=== PATIENT | male | born 1955 | race Native Hawaiian/Other Pacific Islander ===

== ENCOUNTER 2016-10-24 18:43 | Outpatient (CLI) | payer OTHER ==
[2016-10-24] MEDS ORDERED: QC IBUPROFEN200 M1 OR (19:49)
[2016-10-24] MEDS ORDERED: LISI10TA11 PO (19:50)
[2016-10-24] MEDS ORDERED: FLUOXETINE20 MG PO (19:51)
== END 2016-10-24 18:58 | disposition home or self-care (01) ==
LOC: AMB 18:43
DX: R41.82 Altered mental status, unspecified (principal); R06.09 Other forms of dyspnea
CPT/HCPCS: A0425; A0427

== ENCOUNTER 2016-10-24 19:02 | Emergency (ER) | payer OTHER ==
[~2016-10-24] VITALS: Ht 172.7 cm; Wt 63.5 kg
[2016-10-24 19:30] LABS: PLATELET COUNT 69 K/uL (142-355)
[2016-10-24] MEDS ORDERED: QC IBUPROFEN200 M1 OR (19:49)
[2016-10-24 19:50] LABS: POTASSIUM 3.3 mmol/L (3.6-5.2)
[2016-10-24] MEDS ORDERED: LISI10TA11 PO (19:50)
[2016-10-24] MEDS ORDERED: FLUOXETINE20 MG PO (19:51)
[2016-10-24 19:59] LABS: SODIUM 102 mmol/L (136-145)
[2016-10-24 20:20] LABS: PARTIAL THROMBOPLASTIN TIME 28.4 SECONDS (24.5-33.6)
[2016-10-24 22:15] VITALS: BP 119/68; TEMP 98.7
== END 2016-10-24 22:30 | disposition short-term general hospital (02) ==
LOC: ED 19:02
DX: E87.1 Hypo-osmolality and hyponatremia (principal); F10.10 Alcohol abuse, uncomplicated; R68.89 Other general symptoms and signs
CPT/HCPCS: 36415; 80053; 80307; 80320; 81000; 82550; 84484; 85027; 85610; 85730; 93005; 96374; 96375; 99284; G0479; J1940; J2060; J3411

== ENCOUNTER 2016-10-24 22:22 | Outpatient (CLI) | payer OTHER ==
[~2016-10-24 22:22] MED LIST: FLUOXETINE20 MG PO; LISI10TA11 PO; QC IBUPROFEN200 M1 OR
== END 2016-10-24 22:56 | disposition short-term general hospital (02) ==
LOC: AMB 22:22
DX: E87.1 Hypo-osmolality and hyponatremia (principal); F10.10 Alcohol abuse, uncomplicated; R68.89 Other general symptoms and signs
CPT/HCPCS: A0425; A0429

== ENCOUNTER 2017-02-14 18:29 | Emergency (ER) | payer OTHER ==
[~2017-02-14] VITALS: Ht 172.7 cm; Wt 61.2 kg
[2017-02-14 18:37] VITALS: BP 151/77; TEMP 97.8
[2017-02-14] MEDS ORDERED: LABETALOL200 MG OR (18:41)
[2017-02-14 18:49] LABS: PLATELET COUNT 264 K/uL (142-355)
[2017-02-14 19:17] LABS: SODIUM 110 mmol/L (136-145)
== END 2017-02-14 20:20 | disposition home or self-care (01) ==
LOC: ED 18:29
DX: E87.1 Hypo-osmolality and hyponatremia (principal); F10.10 Alcohol abuse, uncomplicated
CPT/HCPCS: 36415; 80053; 80320; 82550; 84484; 85027; 93005; 96360; 99284

== ENCOUNTER 2017-02-16 08:59 | Outpatient (CLI) | payer OTHER ==
[~2017-02-16 08:59] MED LIST changes: +LABETALOL200 MG OR
== END 2017-02-16 09:06 | disposition short-term general hospital (02) ==
LOC: AMB 08:59
DX: I46.9 Cardiac arrest, cause unspecified (principal)
CPT/HCPCS: A0425; A0427

== ENCOUNTER 2017-02-16 09:11 | Emergency (ER) | payer OTHER ==
[~2017-02-16] VITALS: Ht 175.3 cm; Wt 68.0 kg
[2017-02-16 09:31] LABS: PLATELET COUNT 216 K/uL (142-355)
[2017-02-16 09:45] LABS: PARTIAL THROMBOPLASTIN TIME 59.2 SECONDS (24.5-33.6)
[2017-02-16 09:54] LABS: SODIUM 110 mmol/L (136-145)
== END 2017-02-16 11:40 | disposition expired ==
LOC: ED 09:11
PROVIDERS: Family Medicine
PROC: 0T9B70Z Drainage of Bladder with Drainage Device, Via Natural or Artificial Opening (ICD-10-PCS; principal; 2017-02-16)
PROC: 5A12012 Performance of Cardiac Output, Single, Manual (ICD-10-PCS; 2017-02-16)
DX: I46.9 Cardiac arrest, cause unspecified (principal)
CPT/HCPCS: 31500; 36415; 51702; 80053; 80307; 80320; 81000; 82550; 82553; 84484; 85027; 85610; 85730; 92950; 96365; 96374; 96375; 96376; 99291; G0479; J0171; J0282; J0461; J2310; J3490